=== PATIENT | female | born 1980 | race Caucasian/White ===

== ENCOUNTER 2017-03-21 16:53 | Emergency (ER) | payer OTHER ==
[~2017-03-21] VITALS: Ht 162.6 cm; Wt 86.0 kg
[~2017-03-21 16:53] MED LIST: DEPO150I IM
[2017-03-21 16:55] VITALS: BP 147/108; PULSE 101; RESP 13; TEMP 98.7; O2SAT 98
[2017-03-21 17:17] VITALS: BP 131/83
--- NOTE | 2017-03-21 17:52 | RADRPT ---
EXAM DATE/TIME: 03/21/2017 17:32 [facility] COMPARISON: No previous studies available for comparison. INDICATIONS : Hurt knee 2 weeks ago playing volleyball. MEDICAL HISTORY : None. SURGICAL HISTORY : None. ENCOUNTER: Initial ACUITY: 2 weeks PAIN SCORE: 5/10 LOCATION: Right knee FINDINGS: Four view examination of the right knee demonstrates no evidence of fracture or dislocation. Bony mi neralization is normal. The articular surfaces are intact. The suprapatellar soft tissues have a no rmal configuration. There are postsurgical changes status post ACL repair. CONCLUSION: 1. Remote postsurgical changes status post ACL repair. 2. No acute fracture or malalignment. Azael Kelsey MD on March 21, 2017 at 17:47 Board Certified Radiologist. This report was verified electronically.
[2017-03-21] MEDS ORDERED: KETOROLAC TROMETHAMINE 60 MG/2 ML (IM) VIAL IM ONE (18:15)
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
--- NOTE | 2017-03-21 20:09 | RADRPT ---
EXAM DATE/TIME: 03/21/2017 18:30 [facility] COMPARISON: KNEE RIGHT COMPLETE (4VWS), March 21, 2017, 17:32. INDICATIONS : Internal derangement. Right knee pain. Unable to bear weight. MEDICAL HISTORY : None. SURGICAL HISTORY : Rotator cuff, right. Right ACL, MCL and meniscus. ENCOUNTER: Subsequent ACUITY: 2 day PAIN SCORE: 6/10 LOCATION: Right knee. TECHNIQUE: Multiplanar, multisequence MRI examination was performed without contrast. FINDINGS: CRUCIATE LIGAMENTS: ACL and PCL are intact. There is an evidence of previous anterior cruciate ligament repair. MENISCI: Large bucket-handle tear of the medial meniscus. The lateral menisci are intact. COLLATERAL LIGAMENTS: MCL and LCL complexes are intact. BONE/CARTILAGE: There is chondromalacia patellae with edema within the subchondral bone. With high signal within the adjacent articular cartilage. There is some chondromalacia of the medial compartment. MISCELLANEOUS: No evidence of joint effusion. Extensor mechanism is intact. CONCLUSION: 1. Large bucket-handle tear of the medial meniscus. 2. Moderate chondromalacia patellae. Eulalio King MD on March 21, 2017 at 20:03 Board Certified Radiologist. This report was verified electronically.
[2017-03-21] MEDS ORDERED: IBUP-232 PO (20:43)
== END 2017-03-21 21:01 | disposition home or self-care (01) ==
LOC: NEPD 16:53
DX: S83.211A Bucket-handle tear of medial meniscus, current injury, right knee, initial encounter (principal); X58.XXXA Exposure to other specified factors, initial encounter; Y93.68 Activity, volleyball (beach) (court)
CPT/HCPCS: 73564; 73721; 96372; 99284; J1885

== ENCOUNTER → 2017-04-07 | Day surgery (SDC) | payer OTHER ==
[~2017-04-07] MED LIST changes: +ACETAMINOPHEN/HYDROcodone 325 MG/5 MG TAB ONE; +BUPIVACAINE/EPINEPHRINE 0.5% PF 10 ML VIAL ONE; +IBUP-232 PO; +KETOROLAC TROMETHAMINE 30 MG/ML (IVP) VIAL IV PUSH ONE; +LACTATED RINGER'S 1000 ML INJ 1,000 ML ONE; +MEPERIDINE HCL 25 MG/ML VIAL ONE; +MIDAZOLAM HCL 2 MG/2 ML VIAL ONE; +ONDANSETRON HCL 4 MG/2 ML VIAL IV PUSH ONE; +PROPOFOL 200 MG/20 ML AMP IV ONE; +ceFAZolin INJ 1,000 MG VIAL ONE
--- NOTE | 2017-04-08 18:39 | MP ---
cc: BALTA LONDONO M.D. DATE OF SURGERY 04/07/17 PREOPERATIVE DIAGNOSIS Right knee medial meniscus bucket-handle tear. POSTOPERATIVE DIAGNOSES Right knee medial meniscus bucket-handle tear. PROCEDURE Right knee arthroscopic partial meniscectomy. SURGEON Dr. Joselito Londono ANESTHESIA General ESTIMATED BLOOD LOSS Less than 10 mL. TOURNIQUET TIME Zero minutes. JUSTIFICATION The patient is a 37-year female who injured the right knee with the a bucket-handle medial meniscus tear. Clinical exam as well as MRI confirmed the above-named findings. Patient was counseled as to risks, benefits and alternatives of the above proposed surgical procedure. She did wish to proceed with surgery. PROCEDURE IN DETAIL A written consent was obtained. The patient identified by name, taken to the operating room, placed supine on the operating table. General anesthesia was administered as well as 1 gram of IV Ancef. Right thigh carefully placed in well-padded leg olmos. Right lower tree prepped and draped using isopropyl alcohol, Hibiclens solution and DuraPrep solution. After time-out was performed, a standard medial and lateral parapatellar arthroscopic portal was established it the patellofemoral joint. The patellofemoral joint revealed grade 2 chondromalacia. The medial compartment revealed a large bucket-handle tear of medial meniscus with significant traumatic tears within the meniscus itself. An arthroscopic biter followed by an arthroscopic shave was introduced into the medial compartment to perform a partial meniscectomy. The meniscal rim was probed and early grade 2 chondromalacia changes medial femoral condyle. Anterior cruciate ligament showed evidence of partial tearing and lateral compartment was relatively free of meniscal pathology and chondromalacia. At the conclusion of surgical procedure, 30 mL of 0.5% Marcaine with epinephrine was injected into the knee joint. The arthroscopic portals were closed with 3-0 Prolene suture. Sterile dressing applied. The patient tolerated procedure well. No intraoperative complications noted. MD SHAUNA Gerber/ /10:23 AM /6:34 PM
== END | disposition home or self-care (01) ==
LOC: ESDC 08:05
PROVIDERS: ATTEND Orthopaedic Surgery Sports Medicine
DX: S83.211A Bucket-handle tear of medial meniscus, current injury, right knee, initial encounter (principal)
CPT/HCPCS: 01400; 29881; J0690; J1885; J2175; J2250; J2405; J3010; J7120